=== PATIENT | female | born 2000 | race Caucasian/White ===

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

== ENCOUNTER 2021-10-09 10:08 | Emergency (ER) | payer SELFPAY ==
[~2021-10-09] VITALS: Ht 152.4 cm; Wt 65.9 kg
[~2021-10-09 10:08] MED LIST changes: +CLEOCIN HCL300 MG PO
[2021-10-09 10:14] VITALS: BP 121/72; TEMP 97.7
[2021-10-09 11:30] VITALS: PULSE 91
== END 2021-10-09 11:30 | disposition home or self-care (01) ==
LOC: COL.ER 10:08
DX: J06.9 Acute upper respiratory infection, unspecified (principal); Z20.822 Contact with and (suspected) exposure to COVID-19

== ENCOUNTER 2022-01-15 17:52 | Emergency (ER) | payer SELFPAY ==
[~2022-01-15] VITALS: Ht 152.4 cm; Wt 65.9 kg
[2022-01-15 18:10] VITALS: TEMP 98.6
[2022-01-15 19:35] VITALS: BP 114/77; PULSE 91
== END 2022-01-15 19:35 | disposition home or self-care (01) ==
LOC: COL.ER 17:52
DX: T23.141A Burn of first degree of multiple right fingers (nail), including thumb, initial encounter (principal); X12.XXXA Contact with other hot fluids, initial encounter

== ENCOUNTER 2022-07-15 23:28 | Emergency (ER) | payer OTHER ==
[~2022-07-15] VITALS: Ht 154.9 cm; Wt 65.9 kg
[2022-07-15 23:39] VITALS: TEMP 98.3
[2022-07-16 00:10] LABS: COLLECTION METHOD CLEAN CATCH
[2022-07-16 00:24] LABS: MUCOUS Present (NOT PRESENT); SQUAMOUS EPITHELIAL 0-2 /hpf (0-10); URINE BACTERIA None Seen /hpf (NONE SEEN); URINE RBC 0-2 /hpf (0-2)
[2022-07-16 00:25] LABS: URINE APPEARANCE Clear (CLEAR/HAZY); URINE BLOOD 2+ (NEGATIVE); URINE COLOR Yellow (YELLOW); URINE GLUCOSE Negative (NEGATIVE); URINE KETONE Negative (NEGATIVE); URINE NITRATE Negative (NEGATIVE); URINE PROTEIN(semi-quant) Negative (NEGATIVE); URINE UROBILINOGEN 0.2 E.U/dL (0.2-1.0)
[2022-07-16] MEDS ORDERED: FLEXERIL 1010 MG/TAB PO (00:52)
[2022-07-16 01:12] VITALS: BP 110/69; PULSE 81
== END 2022-07-16 01:13 | disposition home or self-care (01) ==
LOC: COL.ER 23:28
PROVIDERS: Emergency Medicine Emergency Medical Services
DX: M54.50 Low back pain, unspecified (principal)

== ENCOUNTER 2022-07-31 17:00 | Emergency (ER) | payer OTHER ==
[~2022-07-31] VITALS: Ht 154.9 cm; Wt 65.9 kg
[~2022-07-31 17:00] MED LIST changes: +FLEXERIL 1010 MG/TAB PO
[2022-07-31 17:06] VITALS: BP 102/72; PULSE 115; TEMP 98.9
== END 2022-07-31 17:46 | disposition home or self-care (01) ==
LOC: COL.ER 17:00
DX: M54.50 Low back pain, unspecified (principal); M25.511 Pain in right shoulder; F17.290 Nicotine dependence, other tobacco product, uncomplicated

== ENCOUNTER 2023-02-28 13:05 | Emergency (ER) | payer SELFPAY ==
[~2023-02-28] VITALS: Ht 154.9 cm; Wt 61.4 kg
[~2023-02-28 13:05] MED LIST changes: +NAPROSYN500 MG PO
[2023-02-28 13:21] VITALS: TEMP 98
[2023-02-28 14:06] VITALS: BP 112/74; PULSE 89
== END 2023-02-28 14:11 | disposition home or self-care (01) ==
LOC: COL.ER 13:05
DX: S93.402A Sprain of unspecified ligament of left ankle, initial encounter (principal); X50.1XXA Overexertion from prolonged static or awkward postures, initial encounter; Y92.59 Other trade areas as the place of occurrence of the external cause; Y99.0 Civilian activity done for income or pay

== ENCOUNTER 2023-09-02 22:15 | Emergency (ER) | payer OTHER ==
[~2023-09-02] VITALS: Ht 154.9 cm; Wt 61.4 kg
[~2023-09-02 22:15] MED LIST changes: +CEPHALEXIN500 M1 PO; +KLOR-CON 1010 MEQ PO; +LASIX 40MG TABL40 MG PO; +MOBIC 7.5MG7.5 MG PO; +MSIR30 MG PO; +NITROSTAT0.3 MG SL; +PROTONIX 40MG T40 MG PO; +ROBAXIN 50500 MG/TAB PO; +ZOFRAN ODT4 MG PO
[2023-09-02 22:21] VITALS: BP 117/81; TEMP 98.3
[2023-09-02] MEDS ORDERED: Acetaminophen 500 MG TAB PO ONE (23:00)
[2023-09-02] MEDS ORDERED: Ibuprofen 400 MG TAB PO ONE (23:30)
[2023-09-03 00:16] VITALS: PULSE 80
== END 2023-09-03 00:17 | disposition home or self-care (01) ==
LOC: COL.ER 22:15
DX: R51.9 Headache, unspecified (principal); F17.210 Nicotine dependence, cigarettes, uncomplicated

== ENCOUNTER 2023-09-15 17:28 | Emergency (ER) | payer OTHER ==
[~2023-09-15] VITALS: Ht 154.9 cm; Wt 61.4 kg
[2023-09-15 17:35] VITALS: TEMP 98.3
[2023-09-15] MEDS ORDERED: Acetaminophen 500 MG TAB PO ONE (20:30)
[2023-09-15 21:09] VITALS: BP 105/72; PULSE 102
[2023-09-15 21:12] LABS: COLLECTION METHOD CLEAN CATCH
[2023-09-15 21:22] LABS: PH 7.5 (5.0-8.5); URINE APPEARANCE CLEAR (CLEAR/HAZY); URINE BLOOD 2+ (NEGATIVE); URINE COLOR YELLOW (YELLOW); URINE GLUCOSE NEGATIVE (NEGATIVE); URINE KETONE NEGATIVE (NEGATIVE); URINE NITRATE NEGATIVE (NEGATIVE); URINE PROTEIN(semi-quant) NEGATIVE (NEGATIVE); URINE UROBILINOGEN 0.2 E.U/dL (0.2-1.0)
== END 2023-09-15 21:09 | disposition home or self-care (01) ==
LOC: COL.ER 17:28
PROVIDERS: Nurse Practitioner
DX: G89.29 Other chronic pain (principal); M25.551 Pain in right hip; M25.511 Pain in right shoulder

== ENCOUNTER 2024-01-06 22:49 | Emergency (ER) | payer OTHER ==
[~2024-01-06] VITALS: Ht 154.9 cm; Wt 61.4 kg
[2024-01-07] MEDS ORDERED: ZOFRAN ODT4 MG PO (00:35)
[2024-01-07 00:44] VITALS: BP 109/75; PULSE 84; TEMP 98.1
== END 2024-01-07 00:44 | disposition home or self-care (01) ==
LOC: COL.ER 22:49
DX: M25.551 Pain in right hip (principal); G89.29 Other chronic pain; R11.2 Nausea with vomiting, unspecified

== ENCOUNTER 2024-02-03 22:00 | Emergency (ER) | payer SELFPAY ==
[~2024-02-03] VITALS: Ht 154.9 cm; Wt 61.4 kg
[2024-02-03 23:22] VITALS: BP 110/73; PULSE 88; TEMP 98
== END 2024-02-03 23:22 | disposition home or self-care (01) ==
LOC: COL.ER 22:00
DX: M79.644 Pain in right finger(s) (principal); W23.0XXA Caught, crushed, jammed, or pinched between moving objects, initial encounter; Y92.89 Other specified places as the place of occurrence of the external cause; Y99.0 Civilian activity done for income or pay